=== PATIENT | male | born 1990 | race American Indian/Alaskan Native ===

== ENCOUNTER 2018-10-11 10:30 | Emergency (ER) | payer OTHER ==
[2018-10-11] MEDS ORDERED: IBUPROFEN PO ONE (12:48)
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
[2018-10-11 16:26] VITALS: BP 118/70
== END 2018-10-11 16:25 | disposition home or self-care (01) ==
LOC: ED 10:30
DX: S13.4XXA Sprain of ligaments of cervical spine, initial encounter (principal); M54.5 Low back pain; F17.200 Nicotine dependence, unspecified, uncomplicated; F10.10 Alcohol abuse, uncomplicated; V89.2XXA Person injured in unspecified motor-vehicle accident, traffic, initial encounter; Y93.89 Activity, other specified; Y92.488 Other paved roadways as the place of occurrence of the external cause; Y99.8 Other external cause status
CPT/HCPCS: 72040; 99283